=== PATIENT | female | born 1930 | race Caucasian/White ===

== ENCOUNTER 2016-11-03 17:47 | Emergency (ER) | payer OTHER, MEDICARE ==
[~2016-11-03] VITALS: Ht 157.5 cm; Wt 79.4 kg
[2016-11-03 18:11] VITALS: BP 167/77
--- NOTE | 2016-11-03 19:26 | ED GENERAL ADULT ---
History of Present Illness General Chief Complaint: General Adult Stated Complaint: RT GRION PAIN Source: patient Exam Limitations: no limitations Vital Signs & Intake/Output Vital Signs & Intake/Output Vital Signs Date Time Temp Pulse Resp B/P B/P Pulse O2 O2 Flow FiO2 Mean Ox Delivery Rate 11/03 1811 98.6 78 18 167/77 96 Room Air ED Intake and Output 11/04 0000 11/03 1200 Intake Total 0 Output Total Balance 0 Intake, Oral 0 Patient 175 lb Weight Allergies Uncoded Allergies: Med Allergies N Triage Note: PT STATE STHAT SHE HAS BEEN HAVING PAIN THAT SHOOTS INTO HER GROIN FOR OVER 1 MONTH, WAS SEEN BY ORTHO AND HAD XRAYS OF PELVIS AND HIP, PAIN NOW IS ALSO IN HER R BUTTOCKS, DOWN HER LEG AND INTO HER GROIN Triage Nurses Notes Reviewed? yes Onset: Gradual Duration: week(s):, waxing and waning Timing: recent history Injury Environment: home Severity: mild Modifying Factors: Improves With: rest. Associated Symptoms: right hip pain HPI: 86 yo woman prensets with 1 month history of right groin pain, worse when she moves or walks. She was evaluated by Dr. Mayer this week who did xrays which were reportedly benign. Her daughter is here, "I just want to make sure it's not a blood clot. " She notes no increased swelling. No increased erythema or pain. She is otherwise well. Past History Travel History Traveled to [place] past 21 day No Medical History Any Pertinent Medical History? see below for history Neurological: NONE EENT: NONE Cardiovascular: hyperlipidemia, mitral stenosis Respiratory: NONE Gastrointestinal: NONE Hepatic: NONE Renal: NONE Musculoskeletal: NONE Psychiatric: NONE Endocrine: NONE Blood Disorders: NONE Cancer(s): NONE Surgical History Surgical History: none Psychosocial History What is your primary language Amharic Tobacco Use: Never used ETOH Use: denies use Illicit Drug Use: denies illicit drug use Family History Hx Contributory? No Review of Systems Review of Systems Constitutional: Reports: no symptoms. EENTM: Reports: no symptoms. Respiratory: Reports: no symptoms. Cardiovascular: Reports: no symptoms. GI: Reports: no symptoms. Genitourinary: Reports: no symptoms. Musculoskeletal: Reports: no symptoms. Skin: Reports: no symptoms. Neurological/Psychological: Reports: no symptoms. Hematologic/Endocrine: Reports: no symptoms. Immunologic/Allergic: Reports: no symptoms. All Other Systems: Reviewed and Negative Physical Exam Physical Exam General Appearance: well developed/nourished, mild distress Head: atraumatic, normal appearance Eyes: Bilateral: normal appearance. Ears, Nose, Throat: normal pharynx, normal ENT inspection Neck: normal inspection, supple, full range of motion Respiratory: normal breath sounds, chest non-tender, no respiratory distress, quiet respiration, lungs clear Cardiovascular: regular rate/rhythm Gastrointestinal: normal bowel sounds, soft, non-tender Extremities: normal ROM, mild crepitus. no focal bony tenderness. no significant edema bilaterally in lower extremities. no sign of infection. Neurologic/Psych: no motor/sensory deficits, awake, alert, oriented x 3 Skin: intact, normal color, warm/dry Core Measures ACS in differential dx? No CVA/TIA Diagnosis: No Severe Sepsis Present: No Septic Shock Present: No Progress Differential Diagnoses I considered the following diagnoses in my evaluation of the patient: dvt vs OA vs other. Plan of Care: discussed at length... she does not wish to stay.... she prefers to go home and will check u/ s in the AM. Initial ED EKG: none Departure Departure Disposition: HOME OR SELF CARE Condition: Stable Clinical Impression Primary Impression: Osteoarthritis Referrals: SUYAPA BADILLO,[place] (PCP/Family) Departure Forms: Customer Survey General Discharge Information Comments I offered to obtain an u/s... she declines. She does not wish to wait. I filled out u/s requisition form... She will follow up u/s in am. Critical Care Note Critical Care Note Critical Care Time: non-applicable
== END 2016-11-03 20:27 ==
LOC: ERH 17:47
DX: M19.90 Unspecified osteoarthritis, unspecified site (principal)